=== PATIENT | male | born 1970 | race Caucasian/White ===

== ENCOUNTER → 2016-11-09 | Outpatient (CLI) | payer BC ==
[~2016-11-09] MED LIST: AUGMENTIN 875875 MG PO; BIAXIN500 MG PO; CLARITIN10 MG PO; DOXYCYCLINE100 MG PO; KEFLEX500 MG PO; LEVOFLOXACIN500 MG PO; MOTRIN800 MG PO; NKHM; NOVAPLUS V0.09 MG/Ac IH; PERCOCET 325 MG1 TA7 PO; VOLTAREN50 M1 PO
== END | disposition home or self-care (01) ==
LOC: CT 10:54
DX: R91.1 Solitary pulmonary nodule (principal)

== ENCOUNTER 2019-03-08 18:34 | Emergency (ER) | payer OTHER ==
[~2019-03-08] VITALS: Ht 167.6 cm; Wt 81.6 kg
[2019-03-08 18:37] VITALS: BP 153/68
[2019-03-08] MEDS ORDERED: CEPHALEXIN500 M1 PO (20:32)
== END 2019-03-08 21:32 | disposition home or self-care (01) ==
LOC: ED 18:34
DX: S71.112A Laceration without foreign body, left thigh, initial encounter (principal); F17.200 Nicotine dependence, unspecified, uncomplicated; Z98.890 Other specified postprocedural states; W29.3XXA Contact with powered garden and outdoor hand tools and machinery, initial encounter; Y93.89 Activity, other specified; Y92.89 Other specified places as the place of occurrence of the external cause; Y99.9 Unspecified external cause status

== ENCOUNTER 2021-05-06 08:51 | Emergency (ER) | payer OTHER ==
[~2021-05-06] VITALS: Wt 72.6 kg
[~2021-05-06 08:51] MED LIST changes: +CEPHALEXIN500 M1 PO
[2021-05-06 09:29] VITALS: BP 152/89
== END 2021-05-06 11:56 | disposition home or self-care (01) ==
LOC: ED 08:51
DX: S99.911A Unspecified injury of right ankle, initial encounter (principal); J44.9 Chronic obstructive pulmonary disease, unspecified; F17.200 Nicotine dependence, unspecified, uncomplicated; W18.39XA Other fall on same level, initial encounter; Y93.89 Activity, other specified; Y92.89 Other specified places as the place of occurrence of the external cause; Y99.8 Other external cause status

== ENCOUNTER 2023-08-02 08:30 | Emergency (ER) | payer OTHER ==
[~2023-08-02] VITALS: Ht 167.6 cm; Wt 85.3 kg
[2023-08-02 08:43] VITALS: BP 188/90
[2023-08-02] MEDS ORDERED: TIZANIDINE HCL4 MG PO (10:15)
[2023-08-02] MEDS ORDERED: NAPROSYN500 MG PO (10:15)
== END 2023-08-02 11:09 | disposition home or self-care (01) ==
LOC: ED 08:30
DX: M54.12 Radiculopathy, cervical region (principal); M62.838 Other muscle spasm; M79.601 Pain in right arm; Z98.890 Other specified postprocedural states

== ENCOUNTER → 2023-08-10 | Outpatient (CLI) | payer OTHER ==
[~2023-08-10] MED LIST changes: +NAPROSYN500 MG PO; +TIZANIDINE HCL4 MG PO
== END | disposition home or self-care (01) ==
LOC: MRI 01:03
PROVIDERS: ATTEND Internal Medicine
DX: M47.812 Spondylosis without myelopathy or radiculopathy, cervical region (principal); M50.23 Other cervical disc displacement, cervicothoracic region; M79.2 Neuralgia and neuritis, unspecified; M48.02 Spinal stenosis, cervical region

== ENCOUNTER → 2024-05-25 | Outpatient (CLI) | payer OTHER | END | disposition home or self-care (01) | LOC: CT 04-11 08:00 | PROVIDERS: ATTEND Internal Medicine | DX: Z12.2 Encounter for screening for malignant neoplasm of respiratory organs (principal); R91.8 Other nonspecific abnormal finding of lung field; I51.7 Cardiomegaly; I25.10 Atherosclerotic heart disease of native coronary artery without angina pectoris; F17.210 Nicotine dependence, cigarettes, uncomplicated ==

== ENCOUNTER → 2025-04-06 | Outpatient (CLI) | payer OTHER ==
[2025-04-06 08:05] LABS: BASO # 0.1 10*3/uL (0.0-0.1); BASO % 0.8 % (0.0-1.0); EOS # 0.2 10*3/uL (0.0-0.4); EOS % 2.4 % (1.0-4.0); MEAN CELL VOLUME 98.8 fl (80.0-94.0); MEAN CORPUSCULAR HGB 32.0 pg (27.0-31.0); MEAN PLATELET VOLUME 10.6 fl (9.6-12.3); MONO # 0.6 10*3/uL (0.1-1.0); MONO % 9.4 % (3.0-9.0); NEUT # 3.0 10*3/uL (2.3-7.9); NEUT % 48.1 % (47.0-73.0); NUCLEATED RED BLOOD CELL 0.0 % (0.0-0.0); NUCLEATED RED BLOOD CELL 0.0 10*3/uL (0.0-0.0); PLATELET COUNT AUTOMATED 208 10*3/uL (130-400); RED CELL DISTRI WIDTH 12.4 % (0-14.5)
[2025-04-06 08:45] LABS: BUN 16 mg/dl (9-23); SGPT/ALT 13 U/L (5-49)
[2025-04-06 08:49] LABS: VITAMIN D, 25-HYDROXY 40.2 ng/mL (30-100)
== END | disposition home or self-care (01) ==
LOC: LAB 07:41
PROVIDERS: ATTEND Internal Medicine
DX: I10 Essential (primary) hypertension (principal); E78.2 Mixed hyperlipidemia; E55.9 Vitamin D deficiency, unspecified